=== PATIENT | male | born 1970 | race Caucasian/White ===

== ENCOUNTER 2018-05-29 08:29 | Emergency (ER) | payer MEDICAID ==
[~2018-05-29] VITALS: Ht 180.3 cm; Wt 113.6 kg
[2018-05-29 08:47] VITALS: Ht 180.3 cm; Wt 113.6 kg
[2018-05-29] MEDS ORDERED: ROBAXIN500 MG PO (11:18)
[2018-05-29] MEDS ORDERED: ULTRAM50 MG PO (11:18)
[2018-05-29 11:51] VITALS: BP 137/78
== END 2018-05-29 11:52 | disposition home or self-care (01) ==
LOC: D.ER 08:29
DX: S39.012A Strain of muscle, fascia and tendon of lower back, initial encounter (principal); W01.0XXA Fall on same level from slipping, tripping and stumbling without subsequent striking against object, initial encounter; Y93.89 Activity, other specified; Y92.89 Other specified places as the place of occurrence of the external cause; F17.200 Nicotine dependence, unspecified, uncomplicated